=== PATIENT | female | born 1950 | race Caucasian/White ===

== ENCOUNTER → 2017-07-04 | Outpatient (CLI) | payer MEDICARE, OTHER ==
[~2017-07-04] MED LIST: AMANTADINE HCL100 M1 PO; AMARYL2 MG PO; ASPIRIN CHEWABL81 M1 PO; BENZTROPINE ME0.5 MG PO; BYETTA5MCG SC; CYMBALTA30 MG PO; DARVOCET N 1001 TAB PO; DAYPRO600 M1 PO; EXFORGE HCT 101 TA2 PO; EXFORGE HCT 5 M1 TA1 PO; HYDROCODONE BIT1 T11 PO; K-LOR20 MEQ PO; KLONOPIN1 M1 PO; KLONOPIN1 MG PO; LIPITOR80 MG PO; LITHIUM CARBON300 M1 PO; MACROBID100 M1 PO; METFORMIN500 MG PO; Orphenadrine C100 MG PO; SYNTHROID,LEV100 MCG PO; VISTARIL25 MG PO; VITAMIN B1250 MCG PO; VITAMIN D32000 UNIT PO; VITAMIN E400 UNI2 PO; ZOCOR40 MG PO
[2017-07-04 10:38] LABS: ALBUMIN 3.9 gm/dl (3.1-4.5); ALKALINE PHOSPHATASE 89 U/L (45-117); BILIRUBIN, DIRECT 0.1 mg/dL (0.0-0.2); BUN 18 mg/dl (7-24); CHLORIDE 106 mmol/L (98-107); CHOLESTEROL 97 mg/dL (<200); CREATININE 0.87 mg/dL (0.55-1.02); FREE T4 1.25 ng/dl (0.76-1.46); HDL CHOLESTEROL 36 mg/dl (40-60); LDL CHOLESTEROL 35 mg/dL (9-159); POTASSIUM 4.1 mmol/L (3.5-5.1); SGOT/AST 65 IU/L (3-35); SGPT/ALT 61 U/L (12-78); SODIUM 137 mmol/L (136-145); TOTAL PROTEIN 8.3 gm/dL (6.4-8.2); TRIGLYCERIDES 128 mg/dl (<150); VLDL CHOLESTEROL 26 mg/dL (6-40)
[2017-07-04 10:58] LABS: BILIRUBIN NEGATIVE (NEGATIVE); BLOOD NEGATIVE (NEGATIVE); CLARITY SL CLOUDY (CLEAR); COLOR YELLOW (YELLOW); GLUCOSE 3+ (NEGATIVE); KETONE NEGATIVE (NEGATIVE); LEUKO ESTERASE NEGATIVE (NEGATIVE); NITRITE NEGATIVE (NEGATIVE); PH 5.5 (5.0-9.0); UROBILINOGEN 0.2 E.U./dl (0.2-1.0)
[2017-07-04 11:10] LABS: BACTERIA TRACE; WBC 0-2 wbc/hpf (0-5)
[2017-07-04 11:24] LABS: VITAMIN D, 25-HYDROXY 32.2 ng/mL (30-100)
== END | disposition home or self-care (01) ==
LOC: LAB 09:19
PROVIDERS: Internal Medicine
DX: E78.5 Hyperlipidemia, unspecified (principal); E53.8 Deficiency of other specified B group vitamins; E11.65 Type 2 diabetes mellitus with hyperglycemia; E03.9 Hypothyroidism, unspecified; E55.9 Vitamin D deficiency, unspecified

== ENCOUNTER → 2017-10-26 | Outpatient (CLI) | payer MEDICARE, OTHER ==
[2017-10-26 10:01] LABS: BILIRUBIN NEGATIVE (NEGATIVE); BLOOD NEGATIVE (NEGATIVE); CLARITY SL CLOUDY (CLEAR); COLOR YELLOW (YELLOW); GLUCOSE 3+ (NEGATIVE); KETONE NEGATIVE (NEGATIVE); LEUKO ESTERASE NEGATIVE (NEGATIVE); NITRITE NEGATIVE (NEGATIVE); UROBILINOGEN 0.2 E.U./dl (0.2-1.0)
[2017-10-26 10:28] LABS: ALBUMIN 4.1 gm/dl (3.1-4.5); ALKALINE PHOSPHATASE 88 U/L (45-117); BILIRUBIN, DIRECT 0.1 mg/dL (0.0-0.2); BUN 18 mg/dl (7-24); CHLORIDE 105 mmol/L (98-107); CREATININE 0.84 mg/dL (0.55-1.02); POTASSIUM 4.1 mmol/L (3.5-5.1); SGOT/AST 42 IU/L (3-35); SGPT/ALT 47 U/L (12-78); SODIUM 137 mmol/L (136-145); TOTAL PROTEIN 7.9 gm/dL (6.4-8.2)
[2017-10-26 10:49] LABS: BACTERIA 1+
== END ==
LOC: LAB 09:07
PROVIDERS: Internal Medicine
DX: E11.65 Type 2 diabetes mellitus with hyperglycemia (principal); E53.8 Deficiency of other specified B group vitamins; E55.9 Vitamin D deficiency, unspecified; E78.5 Hyperlipidemia, unspecified

== ENCOUNTER → 2018-02-22 | Outpatient (CLI) | payer MEDICARE, OTHER ==
[2018-02-22 09:08] LABS: BILIRUBIN NEGATIVE (NEGATIVE); BLOOD 3+ (NEGATIVE); CLARITY SL CLOUDY (CLEAR); COLOR YELLOW (YELLOW); GLUCOSE 3+ (NEGATIVE); KETONE NEGATIVE (NEGATIVE); LEUKO ESTERASE NEGATIVE (NEGATIVE); NITRITE NEGATIVE (NEGATIVE); PH 5.5 (5.0-9.0); UROBILINOGEN 0.2 E.U./dl (0.2-1.0)
[2018-02-22 09:37] LABS: ALBUMIN 3.9 gm/dl (3.1-4.5); CHLORIDE 102 mmol/L (98-107); POTASSIUM 3.8 mmol/L (3.5-5.1); SODIUM 139 mmol/L (136-145)
[2018-02-22 09:46] LABS: ALKALINE PHOSPHATASE 88 U/L (45-117); BILIRUBIN, DIRECT 0.1 mg/dL (0.0-0.2); BUN 18 mg/dl (7-24); CHOLESTEROL 85 mg/dL (<200); CREATININE 0.86 mg/dL (0.55-1.02); FREE T4 1.08 ng/dl (0.76-1.46); HDL CHOLESTEROL 32 mg/dl (40-60); LDL CHOLESTEROL 22 mg/dL (9-159); SGOT/AST 34 IU/L (3-35); SGPT/ALT 43 U/L (12-78); TOTAL PROTEIN 7.7 gm/dL (6.4-8.2); TRIGLYCERIDES 155 mg/dl (<150); VLDL CHOLESTEROL 31 mg/dL (6-40)
[2018-02-22 10:00] LABS: BACTERIA 1+; RBC TNTC rbc/hpf (0-2)
[2018-02-22 11:45] LABS: VITAMIN D, 25-HYDROXY 50.9 ng/mL (30-100)
== END | disposition home or self-care (01) ==
LOC: LAB 08:15
PROVIDERS: Internal Medicine
DX: E53.8 Deficiency of other specified B group vitamins (principal); E55.9 Vitamin D deficiency, unspecified; E11.65 Type 2 diabetes mellitus with hyperglycemia; E03.9 Hypothyroidism, unspecified; E78.5 Hyperlipidemia, unspecified

== ENCOUNTER → 2018-07-19 | Outpatient (CLI) | payer MEDICARE, OTHER ==
[2018-07-19 09:06] LABS: ALBUMIN 3.8 gm/dl (3.1-4.5); ALKALINE PHOSPHATASE 80 U/L (45-117); BILIRUBIN, DIRECT < 0.1 mg/dL (0.0-0.2); BUN 16 mg/dl (7-24); CHLORIDE 107 mmol/L (98-107); CHOLESTEROL 91 mg/dL (<200); CREATININE 0.82 mg/dL (0.55-1.02); HDL CHOLESTEROL 30 mg/dl (40-60); LDL CHOLESTEROL 39 mg/dL (9-159); POTASSIUM 3.9 mmol/L (3.5-5.1); SGOT/AST 32 IU/L (3-35); SGPT/ALT 39 U/L (12-78); SODIUM 140 mmol/L (136-145); TOTAL PROTEIN 7.7 gm/dL (6.4-8.2); TRIGLYCERIDES 112 mg/dl (<150); VLDL CHOLESTEROL 22 mg/dL (6-40)
[2018-07-19 09:12] LABS: FREE T4 0.84 ng/dl (0.76-1.46); THYROID STIM HORMONE (HS) 0.715 uIU/ml (0.358-4.75)
[2018-07-19 12:16] LABS: VITAMIN D, 25-HYDROXY 46.3 ng/mL (30-100)
[2018-07-19 13:33] LABS: BILIRUBIN NEGATIVE (NEGATIVE); BLOOD TRACE-INTACT (NEGATIVE); CLARITY CLEAR (CLEAR); COLOR YELLOW (YELLOW); GLUCOSE 3+ (NEGATIVE); KETONE NEGATIVE (NEGATIVE); LEUKO ESTERASE NEGATIVE (NEGATIVE); NITRITE NEGATIVE (NEGATIVE); PH 5.5 (5.0-9.0); UROBILINOGEN 0.2 E.U./dl (0.2-1.0)
[2018-07-19 13:57] LABS: RBC 0-2 rbc/hpf (0-2)
== END | disposition home or self-care (01) ==
LOC: LAB 08:15
PROVIDERS: Internal Medicine
DX: E11.65 Type 2 diabetes mellitus with hyperglycemia (principal); E78.5 Hyperlipidemia, unspecified; E55.9 Vitamin D deficiency, unspecified; E53.8 Deficiency of other specified B group vitamins; E03.9 Hypothyroidism, unspecified

== ENCOUNTER → 2018-11-08 | Outpatient (CLI) | payer MEDICARE, OTHER ==
[~2018-11-08] MED LIST changes: +K-LOR 20MEQ20 ME1 PO; -K-LOR20 MEQ PO; +LEVAQUIN750 M1 PO; -METFORMIN500 MG PO; +METFORMIN750 MG PO; +PREDNISONE10 MG PO; +SEROQUEL25 MG PO; -SYNTHROID,LEV100 MCG PO; +SYNTHROID,LEV125 MCG PO; +TRESIBA FL200 UNIT/1 SQ; +TRULICITY1.5 MG/0.5 SC; +VRAYLAR3 MG PO
[2018-11-08 10:42] LABS: BILIRUBIN NEGATIVE (NEGATIVE); BLOOD NEGATIVE (NEGATIVE); CLARITY SL CLOUDY (CLEAR); COLOR YELLOW (YELLOW); GLUCOSE NEGATIVE (NEGATIVE); KETONE NEGATIVE (NEGATIVE); LEUKO ESTERASE NEGATIVE (NEGATIVE); NITRITE NEGATIVE (NEGATIVE); PH 5.5 (5.0-9.0); SPECIFIC GRAVITY 1.025 (1.005-1.030); UROBILINOGEN 0.2 E.U./dl (0.2-1.0)
[2018-11-08 10:43] LABS: ALBUMIN 3.7 gm/dl (3.1-4.5); ALKALINE PHOSPHATASE 83 U/L (45-117); BILIRUBIN, DIRECT 0.2 mg/dL (0.0-0.2); BUN 18 mg/dl (7-24); CHLORIDE 108 mmol/L (98-107); CHOLESTEROL 88 mg/dL (<200); CREATININE 0.86 mg/dL (0.55-1.02); FREE T4 0.82 ng/dl (0.76-1.46); HDL CHOLESTEROL 30 mg/dl (40-60); LDL CHOLESTEROL 38 mg/dL (9-159); POTASSIUM 3.9 mmol/L (3.5-5.1); SGOT/AST 68 IU/L (3-35); SGPT/ALT 71 U/L (12-78); SODIUM 142 mmol/L (136-145); TOTAL PROTEIN 7.9 gm/dL (6.4-8.2); TRIGLYCERIDES 99 mg/dl (<150); VLDL CHOLESTEROL 20 mg/dL (6-40)
[2018-11-08 11:04] LABS: VITAMIN D, 25-HYDROXY 43.7 ng/mL (30-100)
== END | disposition home or self-care (01) ==
LOC: LAB 09:31
PROVIDERS: Internal Medicine
DX: E11.65 Type 2 diabetes mellitus with hyperglycemia (principal); E55.9 Vitamin D deficiency, unspecified; E03.9 Hypothyroidism, unspecified; E53.8 Deficiency of other specified B group vitamins; E78.5 Hyperlipidemia, unspecified

== ENCOUNTER 2019-03-01 18:32 | Inpatient (IN) | payer MEDICARE, OTHER ==
[~2019-03-01] VITALS: Ht 172.7 cm; Wt 111.8 kg
--- NOTE | ~2019-03-01 | PR ---
[place], [place] PROGRESS NOTE NAME: ZORAN HAN [facility] #: [id number] UNIT #: [id number] ROOM: 502 DOCTOR: ANTONIO COVARRUBIAS MD BIRTHDATE: [birth year] DOS: 03/03/2019 SUBJECTIVE: The patient was noted comfortable from yesterday. Shortness of breath has been noted decreased. There were no symptoms of chest pain. Denies symptoms of hemoptysis. Used the BiPAP last night. She has noted fever or elevation, temperature of 101 degree Fahrenheit last night as well. Denies any symptoms of nausea, vomiting, diarrhea, or abdominal pain. Denies pain of the lower extremity. Remaining systems were reviewed, they were noted all negative. PHYSICAL EXAMINATION: GENERAL: The patient was resting comfortably. The patient sitting on the bed this morning. VITAL SIGNS: Temperature 101 degrees Fahrenheit noted as max temperature at midnight and noted afebrile this morning, respiratory rate between 20-22, heart rate 82, blood pressure 90/76, 120/52. Pulse oxygen saturation on 4 liters nasal cannula recorded 94% saturation. HEENT: Chronic obesity. Head was atraumatic. Eyes nonicterus. NECK: Supple. CARDIOVASCULAR: S1, S2 audible. LUNGS: The patient noted with reduction in the wheezing from previous examination. There were no crackles. ABDOMEN: Soft, nontender. Bowel sounds present and obese. EXTREMITIES: Without acute edema. MUSCULOSKELETAL: Noted without any acute deformities. CENTRAL NERVOUS SYSTEM: Cranial nerves were Intact. LABORATORY DATA: Today, WBC count 14,000, hemoglobin 10.6, platelet count 356,000. BMP this morning, BUN 26, creatinine was normal, glucose 353 elevated. PT/PTT was noted as normal. Platelet function was noted abnormal, secondary to use of aspirin. IMPRESSION: 1. Large mass-like consolidation, infiltration in the right upper lobe predominantly. Rule out any endobronchial lesions. 2. Chronic obesity. 3. Acute onset of bronchial asthma with acute exacerbation. 4. Chronic obesity. 5. Leukocytosis as well. PLAN OF TREATMENT: No changes in plan of management. Continue the steroids previously ordered. Bronchodilator use of the BiPAP and oxygen supplementation. Bronchoscopy planned to be done in the morning, n.p.o. past midnight status was achieved. Usual care. [place], [place] PROGRESS NOTE NAME: ZORAN HAN UNIT #: [id number] ROOM: [facility] DOCTOR: ANTONIO COVARRUBIAS MD BIRTHDATE: [birth year] ANTONIO TERRAZAS MD CM:PNTRANS [id number] ANTONIO RAMOS MD 03/03/19 1454 interface
--- NOTE | ~2019-03-01 | EKG ---
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
--- NOTE | ~2019-03-01 | PR ---
[place], [place] PROGRESS NOTE NAME: ZORAN HAN UNIT #: [id number] ROOM: 502 DOCTOR: MK RAMOS MD,ANTONIO BIRTHDATE: [birth year] DOS: 03/06/2019 PULMONARY PROGRESS NOTE SUBJECTIVE: The patient independently seen and examined in psma-md-cuux encounter, history was confirmed. Physical examination performed. The labs were reviewed. Assessment and management for today's note was personally completed. Note done by the medical support assistant was approved as well. She has been noted comfortable at this time, resting on the bed. The patient using oxygen supplementation via nasal cannula. There were no symptoms of coughing, shortness of breath has been improving. The patient had been ambulating, going to the bathroom. Denies symptoms of fever or chills. PHYSICAL EXAMINATION: GENERAL: The patient currently resting comfortably, sitting on the bed. VITAL SIGNS: Normal temperature, respiratory rate of 18, heart rate 80, blood pressure 155/83. Pulse oxygen saturation recorded on 4 liters nasal cannula 96% saturation at rest. HEENT: Examination shows head was atraumatic. Eyes nonicterus. NECK: Supple. CARDIOVASCULAR: S1, S2 audible. LUNGS: Noted for the patient with mild decreased breaths are noted in the right lung. The left lung was clear. ABDOMEN: Soft, nontender, bowel sounds present. EXTREMITIES: No acute change. LABORATORY DATA: The bronchial washing culture was noted as no abnormal bacterial growth, except yeast was isolated. The chest x-ray was noted with resolving consolidation, infiltration in the right upper lobe. Small associated pleural fluid cannot be excluded. IMPRESSION: 1. Resolving acute exacerbation of bronchial asthma, improving acute pneumonia most likely rule out any underlying malignancy. Followup CT scan of the chest in the next 4-5 weeks. 2. Chronic obesity. 3. Acute hypoxic respiratory failure. PLAN OF MANAGEMENT: Assess the patient need of home oxygen, tapering dose depending, use of bronchodilators. Oral antibiotic, Levaquin will be given because of large consolidation as 500 mg daily for the next 10 days. Other therapy, plan and management, additional treatment changes will be ordered based on the progression of the illness. [place], [place] PROGRESS NOTE NAME: ZORAN HAN UNIT #: [id number] ROOM: [facility] DOCTOR: ANTONIO COVARRUBIAS MD BIRTHDATE: [birth year] ANTONIO TERRAZAS MD CM:PNCAREN [id number] ANTONIO RAMOS MD 03/06/19 1526 interface
--- NOTE | ~2019-03-01 | CON ---
[place], [place] REPORT OF CONSULTATION NAME: ZORAN HAN [facility] #: [id number] UNIT #: [id number] ROOM: 502 DOCTOR: ANTONIO COVARRUBIAS MD BIRTHDATE: [birth year] DOS: 03/02/2019 PULMONARY CONSULTATION, EVALUATION, AND MANAGEMENT REASON FOR CONSULTATION: For assessment of symptoms of shortness of breath with cough, respiratory failure and pneumonia versus mass in the right lung. HISTORY OF PRESENT ILLNESS: This is a 68-year-old white female patient without any known diagnosis of pulmonary disease, presented to the hospital reporting having general weakness or fatigue with progressive increased shortness of breath associated with nonproductive cough and later on fever and weakness. The patient had been assessed in the Emergency Room with further assessment. The chest x-ray was done and noted large mass-like lesion, consolidation of the right upper lobe. The CT scan of chest was also completed at that time as well. She has a CT scan of the abdomen and pelvis done for assessment of current ongoing diarrhea. She has been currently admitted to the hospital for further medical management. She has been reported partial reduction in respiratory symptoms. Cough has been noted nonproductive. Shortness breath was noted with mild exertion sometime at rest. There were no symptoms of hemoptysis stated by the patient. There were no symptoms of wheezing stated by the patient as well. REVIEW OF SYSTEMS: CONSTITUTIONAL: Fatigue and tiredness noted recently with onset of abnormal weight loss. Reported symptoms of fever, but there were no chills, or night sweats. EYES: Denies burning, redness, or tenderness. EARS, NOSE, THROAT SYMPTOMS: Denies sore throat, hoarseness, otalgia, postnasal drainage or epistaxis. CARDIOVASCULAR: Denies anginal pain, edema, and pain of the lower extremities. GASTROINTESTINAL: Denies dysphagia, nausea, vomiting, diarrhea, abdominal pain, hematemesis, melena, or hematochezia. SKIN: Denies abnormal lesions or rashes. CENTRAL NERVOUS SYSTEM: Denies dizziness, headache, diplopia or syncopal episode. Remaining systems were reviewed and they were noted all negative. PAST MEDICAL HISTORY: Known with: 1. History of type 2 diabetes mellitus. 2. Bipolar disorder. 3. Essential hypertension. 4. Hyperlipidemia. 5. Hypothyroidism. 6. Chronic moderate obesity. 7. Past history of transient ischemic attack. PAST SURGICAL HISTORY: Reported: 1. . 2. Complete hysterectomy. SOCIAL HISTORY: The patient is and lives at home, has 2 children, noted [place], [place] REPORT OF CONSULTATION NAME: ZORAN HAN UNIT #: [id number] ROOM: [facility] DOCTOR: ANTONIO COVARRUBIAS MD BIRTHDATE: [birth year] nonsmoker lifetime. Denies history of alcohol use or illicit drug use stated. FAMILY HISTORY: The patient's father at the age 62 of heart problem. Mother with complication related to lung cancer. MEDICATIONS: From home were listed as Exforge, aspirin, Lipitor, Cogentin, vitamin D, Klonopin, Trulicity, Cymbalta, Synthroid, metformin, potassium chloride, and vitamin E. Active medications administered for on this hospitalization were use of Norvasc, Cogentin, Lipitor, aspirin, Cymbalta, levothyroxine, Lovenox for DVT prophylaxis, DuoNeb, IV Rocephin, and some other p.r.n. medications. ALLERGIES: DRUG ALLERGIES NOTED ALLERGIES TO WELLBUTRIN, GEODON, IODINE, SULFA DRUGS AND DANAZOL. PHYSICAL EXAMINATION: GENERAL: The patient is a 68-year-old female patient currently comfortable, sitting on the bed with the patient's and daughter also present in the room with the patient. Height of 5 feet 8 inches, weight of 246 pounds, BMI 37.4. VITAL SIGNS: Temperature max of 100.7 degree Fahrenheit, on admission 99.7 degree Fahrenheit to normal temperature at noon today. Respiratory rate was noted 30 on admission, currently 22. Heart rate 102, currently 91; blood pressure 159/64 on admission, currently 155/73. Pulse oxygen saturation recorded as 91% saturation. Previously, she used a BiPAP for respiratory distress management noted with saturation of 97%, 40% to 35% oxygen. HEENT: Head was atraumatic. Eyes nonicterus. Decreased posterior pharyngeal space, high tongue base, crowding of soft tissue structures. Oral mucosa is moist. There were no lesions. CARDIOVASCULAR: S1, S2 audible. LUNGS: Noted with mild reduced breath sounds with expiratory wheezing noted in the lungs bilaterally. ABDOMEN: Soft, obese, and nontender. Bowel sounds are present. EXTREMITIES: Without acute edema. MUSCULOSKELETAL: Without acute deformities. CENTRAL NERVOUS SYSTEM: Cranial nerves 2-12 intact. LABORATORY DATA: PT/PTT yesterday were noted as normal study. CBC done on 03/01/2019, WBC count 14.4, hemoglobin 11.6, platelet count normal, 17 % lymphocytes. CMP that was done 03/01/2019, BUN 12, creatinine 1.04, glucose 189. Sodium 133, potassium 3.4. Phosphorus noted low as 2.4. Lipase level was noted as normal. Troponin 3 sets yesterday negative. Lactic acid 2.4 yesterday, later 1.3. CBC this morning labs, WBC count 13.9, hemoglobin 10.5, hematocrit 326 with 20% lymphocytes. Chest x-ray that was done, one-view, yesterday were reviewed shows large infiltrate limited by the right minor fissure in the right upper lobe. CT scan of the chest, abdomen and pelvis was completed yesterday. CT scan of reviewed shows large area of infiltration with consolidation mass appearance was noted without any significant volume loss in the right upper lobe. Associated lymph node enlargement noted in the right [place], [place] REPORT OF CONSULTATION NAME: ZORAN HAN UNIT #: [id number] ROOM: 502 DOCTOR: ANTONIO COVARRUBIAS MD BIRTHDATE: [birth year] hilar area as well. There were no pleural effusions. IMPRESSION: 1. The patient will be currently admitted to the hospital with symptoms suggestive of acute infection noted with abnormal chest x-ray and CT scan is currently noted the differential of acute pneumonia. Malignancy can be completely excluded as the lymph node enlargement was noted. Differential current pneumonia would be considered with the GI symptoms hypophosphatemia with possible consideration of atypical pneumonia including Legionella pneumonia. 2. The patient with respiratory distress, result of acute pneumonia, but not noted with hypoxia. 3. Chronic moderate obesity. 4. Type 2 diabetes mellitus and other medical illnesses. 5. Family history of lung cancer. The patient was also known in the mother who already . 6. The patient had acute onset of bronchial asthma exacerbation with current pulmonary infection very likely. 7. The patient with current body habitus suggestive of obstructive sleep apnea disorder. 8. Hypophosphatemia related to the pulmonary infection as well as related to diarrhea as well. 9. Diarrhea, ruled out infection or association of current pulmonary infection. PLAN OF THERAPY: The patient was getting IV Rocephin and Zithromax. Zithromax was discontinued. The patient started instead on IV Levaquin with atypical better coverage. The bronchoscopy planned to be done on Monday only to assess the endobronchial tree and endobronchial lesion noted. Certainly, the biopsy will be done. Otherwise, bronchial washing will be taken. Continuation of the bronchodilators. The patient was also noted acute onset of exacerbation of bronchial asthma, wheezing, started on IV Solu-Medrol as well. Use the BiPAP for respiratory distress certainly could be continued. Titrate oxygen supplementation in case of hypoxia. Other therapy, plan of management. Additional treatment changes will be made based on the progression of the illness. Thank you for allowing me to participate in the care of this patient. [place], [place] REPORT OF CONSULTATION NAME: ZORAN HAN UNIT #: [id number] ROOM: [facility] DOCTOR: ANTONIO COVARRUBIAS MD BIRTHDATE: [birth year] ANTONIO TERRAZAS MD CM:CONSTR:REPORT OF CONSULTATION 1620 03/13/19 1050 interface
--- NOTE | ~2019-03-01 | PR ---
[place], [place] PROGRESS NOTE NAME: ZORAN HAN UNIT #: [id number] ROOM: 502 DOCTOR: MK RAMOS MD,ANTONIO BIRTHDATE: [birth year] DOS: 03/04/2019 PULMONARY PROGRESS NOTE SUBJECTIVE: The patient was seen and examined on 03/04/2019. She was noted n.p.o. past midnight for bronchoscopy that was planned to be done today. She had not been noted with symptoms of fever or chills. Denies symptoms of acute hemoptysis. General weakness and fatigue were noted. The wheezing was noted with gradual reduction. Denies symptoms of nausea, vomiting, or diarrhea. The patient has been appearing to be comfortable this morning of assessment. The patient was lying in the bed. The patient reported no headache. The oxygen supplement, continue with the nasal cannula. Remaining systems were reviewed. They were noted all negative. PHYSICAL EXAMINATION: VITAL SIGNS: Normal temperature this morning, respiratory rate of 18, heart rate of 80-55, blood pressure 126/65-140/62. Pulse ox saturation on 4 liters nasal cannula 92% saturation. HEENT: Examination shows head was atraumatic, chronic obesity. NECK: Supple. CARDIOVASCULAR: S1, S2 audible. LUNGS: The patient was noted with the decreased breaths in the lungs bilaterally. ABDOMEN: Soft, nontender. Bowel sounds present. EXTREMITIES: Without acute edema. MUSCULOSKELETAL: Without any acute deformities. CENTRAL NERVOUS SYSTEM: Cranial nerves 2-12 intact. LABORATORY DATA: CMP this morning, glucose 375, BUN 27, creatinine 1.04. AST was 38. The CBC, WBC count 14.4, hemoglobin 11.2, hematocrit 33.5, platelet count 517,000. The chest x-ray yesterday that was done was reviewed, shows persistent right upper lung infiltration or consolidation or mass lesion. IMPRESSION: Persistent acute pneumonia, large, rule out any malignant process, n.p.o. for bronchoscopy, and acute exacerbation of bronchial asthma as well. PLAN OF MANAGEMENT: Continue the steroids, bronchodilators, medication for hyperglycemia, proceed with bronchoscopy. I suggest to make any changes in the medical management after bronchoscopy as necessary. Supportive care. [place], [place] PROGRESS NOTE NAME: ZORAN HAN UNIT #: [id number] ROOM: [facility] DOCTOR: ANTONIO COVARRUBIAS MD BIRTHDATE: [birth year] ANTONIO TERRAZAS MD CM:JOAQUIN [id number] ANTONIO RAMOS MD 03/13/19 1051 interface
--- NOTE | ~2019-03-01 | PROC NOTE ---
[place], [place] PROCEDURE NOTE [id number] #: [id number] ROOM: 502 DOCTOR: MK RAMOS MD,ANTONIO BIRTHDATE: [birth year] DOS: 03/04/2019 FIBEROPTIC BRONCHOSCOPY AND BAL SPECIMEN PREOPERATIVE DIAGNOSIS: A large mass-like lesion with consolidation of the right upper lobe, rule out any endobronchial obstruction. POSTOPERATIVE DIAGNOSIS: Findings of highly suggestive of acute inflammatory process with pneumonia, but there was no endobronchial obstruction. COMPLICATIONS: None. PROCEDURE DESCRIPTION: Informed consent obtained from the patient. The patient was brought to the OR and placed in supine position. Conscious sedation was administered by the Anesthesia Department. After achieving proper sedation, airway was introduced into the mouth. Bronchoscope was advanced to the airway into the laryngeal area. Epiglottis and vocal cord were seen. Vocal cord was noted moving symmetrically with movements. The bronchoscope was advanced through the vocal cord into tracheal lumen, it was noted with small secretion in the distal part of the trachea, which was suctioned out. There was secretion tracking to the right upper lobe subsegment as well. All secretions were suctioned out. Significant inflammatory changes noted with mucosal edema and friability of right upper lobe bronchial opening. There was no endobronchial obstructive lesion noted. Bronchial washing was taken from the right upper, middle, right lower, left upper, lingula, and lower lobe bronchi. In addition to that, BAL specimen was also obtained from the right upper lung subsegment. Procedure was well tolerated by the patient without any difficulty. Postoperative findings were discussed with the patient's family members in detail in the recovery room. No any major change in treatment at this time will be necessary. Continue current antibiotic coverage and management plan as in progress. ANTONIO TERRAZAS MD CM:PROCNOTE:PROCEDURE NOTE [id number] ANTONIO RAMOS MD
--- NOTE | ~2019-03-01 | CON ---
[place], [place] REPORT OF CONSULTATION [id number] #: [id number] ROOM: 502 DOCTOR: SANDRINE BOURGEOIS ED.D (JACKIE) BIRTHDATE: [birth year] DOS: HISTORY OF PRESENT ILLNESS: The patient is a 68-year-old female referred by the hospitalist for psychological evaluation of her depression. At the present time, this patient is on the 5th floor at [facility]. She is and her was with her through the initial stage of the interview. She also has 2 children. 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 Her family is Dr. Neal in [place], [place]. PAST MEDICAL HISTORY: Pertinent for bipolar 1 disorder, hypertension, hypothyroidism, morbid obesity, TIA and diabetes mellitus type 2 and pneumonia. MEDICATIONS: At home include amlodipine, aspirin, benztropine, vitamin D3, Vraylar, Cymbalta and Klonopin and vitamin B12. SOCIAL HISTORY: She denies any substance abuse issues. This patient was awake, alert and oriented in all three spheres. She adamantly denied any suicidal ideation or plan. She has been hospitalized several times in the past at [place], [place] and also [place], [place]. I spoke to her about the need for possible inpatient hospitalization on the Psychiatric Unit here at [facility]. She states that she is doing very well now that her pneumonia has stabilized. She does well on her medications and will continue to follow with Andria Nicole, nurse practitioner. DIAGNOSES: Bipolar 1 disorder - mixed. RECOMMENDATIONS: In my opinion, this patient should be discharged home when she is medically stable to follow up with her outpatient mental health treatment and continue her medications as prescribed. Thank you very much for this consult. SANDRINE BOURGEOIS ED.D CM:CONSTR:REPORT OF CONSULTATION 1126 03/05/19 1557 interface
--- NOTE | ~2019-03-01 | EKG ---
[place], [place] ELECTROCARDIOGRAM REPORT NAME: ZOARN HAN UNIT #: [id number] ROOM: 502 DOCTOR: CAROLINA DRAFT REPORT BIRTHDATE: [birth year] [facility] Test Date: 2019-03-02 Test Time: 00:29:02 Pat Name: ZORAN HAN Department: Room: [facility] Gender: F Rn Operating Room: [place]ogany Shea : 1950 Requested By: ERNST LOPEZ DNP Order Number: [id number] Reading MD: John Paul Gill Measurements Intervals [place] Rate: 75 P: 49 MD: 211 QRS: 25 QRSD: 103 T: 39 QT: 427 QTc: 477 Interpretive Statements Sinus rhythm Low voltage, precordial leads No previous ECG available for comparison Electronically Signed On 03-03-2019 12:50:44 PDT by John Paul Gill CM:EKGRPT:ELECTROCARDIOGRAM REPORT 0029 1250 ERNST LOPEZ DNP EPIPHANY DRAFT REPORT ERNST LOPEZ DNP
--- NOTE | ~2019-03-01 | EKG ---
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
--- NOTE | ~2019-03-01 | PR ---
[place], [place] PROGRESS NOTE NAME: ZORAN HAN UNIT #: [id number] ROOM: 502 DOCTOR: ANTONIO COVARRUBIAS MD BIRTHDATE: [birth year] DOS: 03/05/2019 PULMONARY PROGRESS NOTE The patient is independently seen and examined in [id number] encounter, history was confirmed, physical examination performed, labs were reviewed. Note done by the medical equipment repairer was approved as well. SUBJECTIVE: The patient has been comfortably resting in the bed this morning. She had bronchoscopy done yesterday. Coughing has been noted decreased. Wheezing is also improving significantly. There are no symptoms of chest pain, fever, or chills. OBJECTIVE: VITAL SIGNS: Normal temperature, respiratory rate 20-24, heart rate 76, blood pressure 134/51. Pulse oxygen saturation on three liters nasal cannula is 95% saturation recorded. HEENT: Chronic obesity. Head is atraumatic. Eyes nonicteric. CARDIOVASCULAR: S1 and S2 audible. LUNGS: Free of any wheezing bilaterally. ABDOMEN: Soft, nontender. Bowel sounds present. EXTREMITIES: No acute change. IMPRESSION: Stable respiratory status noted at the present time, responding to current treatment for acute large area of consolidation and pneumonia. Preliminary culture noted without bacterial growth, except isolation of the yeast. The BAL specimen noted with 84% neutrophils, suggestive of acute inflammatory process. PLAN OF THERAPY: Decrease Solu-Medrol to 40 mg daily. Continue antibiotics. Results of the legionella antigen, strep antigen, urine were still pending. Potential discharge in the morning, oral antibiotic conversion, with outpatient close followup will be planned. [place], [place] PROGRESS NOTE NAME: ZORAN HAN UNIT #: [id number] ROOM: 502 DOCTOR: ANTONIO COVARRUBIAS MD BIRTHDATE: [birth year] ANTONIO TERRAZAS MD CM:PNTRANS [id number] ANTONIO RAMOS MD 03/05/19 1436 interface
--- NOTE | ~2019-03-01 | PR ---
[place], [place] PROGRESS NOTE NAME: [facility]AN [id number] UNIT #: [id number] ROOM: 502 DOCTOR: BIANCA HEARD DO BIRTHDATE: [birth year] DOS: 03/05/2019 PULMONARY PROGRESS NOTE. SUBJECTIVE: The patient states that she feels much better today. The patient is status post bronchoscopy, post-procedure day #1. The patient states that she feels like she is breathing much better since she had the procedure done. The patient denies any hemoptysis since procedure. Remaining review of systems was noted to be negative. PHYSICAL EXAMINATION: VITAL SIGNS: Temperature is 97.8, pulse rate 76, respiratory rate 24, blood pressure is 134/51. The patient is 95% on 3 liters by nasal cannula. HEENT: Normocephalic, atraumatic. Eyes nonicteric. NECK: Supple, nontender, trachea midline. CARDIOVASCULAR: S1, S2 audible. LUNGS: Decreased breath sounds bilaterally. ABDOMEN: Soft, nontender. Bowel sounds are present. EXTREMITIES: Without any acute edema. MUSCULOSKELETAL: Without any acute deformities. CENTRAL NERVOUS SYSTEM: Cranial nerves 2-12 grossly intact. No focal neurologic deficits. LABORATORY DATA: White blood cell count 16.3, hemoglobin 11.3, hematocrit 34.7, platelet count is 438. Chemistries: Sodium 137, potassium 4.8, chloride 108, carbon dioxide 19, BUN 20, creatinine 0.97, calcium 9.2. T-bili is 0.4, AST 53, ALT 47, alkaline phosphatase 76, total protein 7.6, albumin is 3.4. MICROBIOLOGY: Bronchial wall shows moderate yeast at this time. IMPRESSION: 1. Persistent acute pneumonia, rule out malignant process. 2. Acute exacerbation of bronchial asthma as well. 3. Morbid obesity. PLAN: At this time, continue steroids, bronchodilators and antibiotics. Continue to follow microbiology for any cultures that may become positive. Continue supportive care. The patient will follow up with Dr. Terrazas upon discharge for further evaluation of the right upper lobe consolidation. Zenon Heard DO [place], [place] PROGRESS NOTE NAME: ZORAN HAN UNIT #: [id number] ROOM: [facility] DOCTOR: BIANCA HEARD DO BIRTHDATE: [birth year] ANTONIO TERRAZAS MD CM:JOAQUIN [phone] BIANCA HEARD DO 03/05/191957 interface
--- NOTE | ~2019-03-01 | EKG ---
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
[2019-03-01 18:32] VITALS: BP 159/64
[~2019-03-01 18:32] MED LIST changes: -LEVAQUIN750 M1 PO; -PREDNISONE10 MG PO; -SEROQUEL25 MG PO; -TRESIBA FL200 UNIT/1 SQ; -TRULICITY1.5 MG/0.5 SC; -VRAYLAR3 MG PO
[2019-03-01 19:11] LABS: HEMATOCRIT 34.2 % (37.0-47.0); HEMOGLOBIN 11.6 g/dl (12.0-16.0); MEAN CELL VOLUME 89.5 fl (81.0-99.0); MEAN CORPUSCULAR HGB 30.4 pg (27.0-31.0); MEAN CORPUSCULAR HGB CONC 33.9 g/dl (33.0-37.0); MEAN PLATELET VOLUME 9.4 fl (9.6-12.3); PLATELET COUNT AUTOMATED 370 10*3/uL (130-400); RED BLOOD COUNT 3.82 10*6/uL (4.10-5.10); WHITE BLOOD COUNT 14.4 10*3/uL (4.8-10.8)
[2019-03-01 19:23] LABS: ACT PARTIAL THROMBO TIME 27.3 SECONDS (20.0-32.1)
[2019-03-01 19:30] VITALS: BP 148/66
[2019-03-01 19:33] LABS: ATYPICAL LYMPHS 1 % (0-0); BASOPHILS 1 % (0-1); BURR CELLS FEW; PLATELET SUFFICIENCY NORMAL (NORMAL); POLYCHROMASIA SLIGHT; TOTAL CELLS COUNTED 100 #CELLS
[2019-03-01 19:35] LABS: ALBUMIN 2.6 gm/dl (3.1-4.5); ALKALINE PHOSPHATASE 72 U/L (45-117); BUN 12 mg/dl (7-24); CHLORIDE 101 mmol/L (98-107); CREATININE 1.04 mg/dL (0.55-1.02); POTASSIUM 3.4 mmol/L (3.5-5.1); SGOT/AST 42 IU/L (3-35); SGPT/ALT 32 U/L (12-78); SODIUM 133 mmol/L (136-145); TOTAL PROTEIN 7.7 gm/dL (6.4-8.2); TROPONIN I < 0.015 ng/ml (<0.045)
--- NOTE | 2019-03-01 19:48 | NUR ---
LAB CALLED WITH CRITICAL LACTIC LEVEL OF 2.4. NOTIFIED.
[2019-03-01 19:50] LABS: PHOSPHOROUS 2.4 mg/dL (2.5-4.9)
[2019-03-01 20:20] VITALS: BP 151/68
[2019-03-01 21:00] VITALS: BP 154/66
[2019-03-01 21:22] VITALS: BP 126/66
--- NOTE | 2019-03-01 21:22 | NUR ---
A 68, admitted to 5E, under the services of COSTA Keita DO with a diagnosis of DYSPNEA, SEVERE SEPSIS, PNEUMONIA. Chief complaint is SHORTNESS OF BREATH. Patient arrived via ambulatory from ER. Monitor applied. Initial assessment completed. Vital signs taken and recorded. COSTA KEITA DO notified of admission to the unit. Orders received. See assessment for past medical history, medications and allergies. Patient and/or family oriented to unit. visitation policy reviewed. Clothing/patient valuable form completed. LINETTE JAVED
--- NOTE | 2019-03-01 21:45 | NUR ---
DR. RENTERIA NOTIFIED OF CRITICAL LACTIC ACID OF 2.6. ALSO NOTIFIED THAT PATIENT'S HOME MED REQ IS UP TO DATE.
[2019-03-01] MEDS ORDERED: TRULICITY1.5 MG/0.5 SC (21:59)
--- NOTE | 2019-03-01 23:00 | NUR ---
Pt placed on BiPap 12/6 and 40%. Pt is tolerating well. Alarms on and audible. Pulse ox hooked up to hallway monitor. SpO2 97%.
[2019-03-02] VITALS: BP 115/67; BP 124/63; BP 132/57
--- NOTE | 2019-03-02 01:04 | NUR ---
PATIENT MEDICATED WITH TYLENOL FOR TEMP OF 100.7. WILL CONTINUE TO MONITOR. CALL LIGHT IN REACH.
[2019-03-02 06:22] LABS: HEMATOCRIT 32.2 % (37.0-47.0); HEMOGLOBIN 10.5 g/dl (12.0-16.0); MEAN CELL VOLUME 90.4 fl (81.0-99.0); MEAN CORPUSCULAR HGB 29.5 pg (27.0-31.0); MEAN CORPUSCULAR HGB CONC 32.6 g/dl (33.0-37.0); MEAN PLATELET VOLUME 10.1 fl (9.6-12.3); PLATELET COUNT AUTOMATED 326 10*3/uL (130-400); RED BLOOD COUNT 3.56 10*6/uL (4.10-5.10); WHITE BLOOD COUNT 13.9 10*3/uL (4.8-10.8)
[2019-03-02 06:25] LABS: BUN 13 mg/dl (7-24); CHLORIDE 106 mmol/L (98-107); CREATININE 0.88 mg/dL (0.55-1.02); PHOSPHOROUS 2.5 mg/dL (2.5-4.9); POTASSIUM 3.3 mmol/L (3.5-5.1); SODIUM 137 mmol/L (136-145)
--- NOTE | 2019-03-02 07:07 | NUR ---
NOTIFIED OF CONSULT FOR RIGHT UPPER LOBE PNEUMONIA.
[2019-03-02 07:59] LABS: ATYPICAL LYMPHS 2 % (0-0); BURR CELLS MODERATE; PLASMA CELL 2 % (0-0); PLATELET SUFFICIENCY NORMAL (NORMAL); POLYCHROMASIA SLIGHT; TOTAL CELLS COUNTED 100 #CELLS
--- NOTE | 2019-03-02 10:15 | NUR ---
ORDERS REC'D TO D/C SCHOOL FUNDRAISING DIRECTOR. MONITOR REMOVED AND CONTACT WAS MADE TO MONITOR ROOM.
[2019-03-02 12:00] VITALS: BP 155/73
[2019-03-02 13:17] LABS: ACT PARTIAL THROMBO TIME 28.2 SECONDS (20.0-32.1)
[2019-03-02 16:00] VITALS: BP 114/64
--- NOTE | 2019-03-02 18:25 | NUR ---
TEMP 97.9 FOLLOWING TYLENOL. PT NO LONGER DIAPHORETIC. NO COMPLAINTS VOICED. CALL LIGHT IN REACH.
[2019-03-02 20:00] VITALS: BP 97/51
--- NOTE | 2019-03-02 21:05 | NUR ---
STERILE URINE COLLECTED, SENT TO LAB.
[2019-03-03] VITALS: BP 119/76; BP 120/52; BP 150/99
--- NOTE | 2019-03-03 02:30 | NUR ---
PATIENT VOICES CONCERN THAT HER DOG WAS RUNNING AROUND IN THE HAILE AND THAT SHE WAS CONCERNED SOMEONE WAS TRYING TO HURT HIM. PATIENT SAID "I FEEL LIKE EVERYONE HERE IS TRYING TO HURT ME" PATIENT CALMED DOWN AND BIPAP WAS PUT ON WHILE PATIENT SLEPT. NO FURTHER SIGNS OR SYMPTOMS OF DISTRESS.
--- NOTE | 2019-03-03 04:10 | NUR ---
PATIENT AWOKE AND PULLED OFF BIPAP. PATIENT CALLED AND SAID" EVERYONE HERE IS PART OF A BIG PRANK ON ME" WHEN CONFRONTED PATIENT THEN SAID THAT SHE WAS EXPECTING SOMEONE TO "JUMP IN FROM THE WINDOW AND YELL SURPRISE IT'S A PRANK." PATIENT VITAL SIGNS STABLE. 98.2, 88, 22, 134/62 94% 4L VIA NC. NO SIGNS OR SYMPTOMS OF DISTRESS. ARRIVED ON FLOOR AND TALKED TO THIS RN ABOUT THE SITUATION. STATED THAT RECENTLY THE PATIENT HAS WOKE UP IN THE MIDDLE OF THE NIGHT AND VOICED CONCERNS TO HIM ABOUT FEELING "FUZZY" AND THAT EVERYONE AROUND HER IS IN ON A BIG PRANK TO HER.
--- NOTE | 2019-03-03 07:51 | NUR ---
DR DOMINGUEZ NOTIFIED OF PATIENT'S FLIGHT OF IDEAS, AND PARANOID MOMENTS FROM PREVIOUS SHIFT. NO NEW ORDERS RECEIVED.
[2019-03-03 08:12] LABS: HEMATOCRIT 32.2 % (37.0-47.0); HEMOGLOBIN 10.6 g/dl (12.0-16.0); MEAN CORPUSCULAR HGB 29.9 pg (27.0-31.0); MEAN CORPUSCULAR HGB CONC 32.9 g/dl (33.0-37.0); MEAN PLATELET VOLUME 10.3 fl (9.6-12.3); PLATELET COUNT AUTOMATED 356 10*3/uL (130-400); RED BLOOD COUNT 3.54 10*6/uL (4.10-5.10); RED CELL DISTRI WIDTH 12.8 % (0-14.5)
[2019-03-03 08:23] LABS: CHLORIDE 108 mmol/L (98-107); CREATININE 1.07 mg/dL (0.55-1.02); POTASSIUM 3.9 mmol/L (3.5-5.1); SODIUM 140 mmol/L (136-145)
[2019-03-03 08:24] LABS: BUN 23 mg/dl (7-24)
[2019-03-03 08:34] LABS: ATYPICAL LYMPHS 1 % (0-0); BURR CELLS FEW; PLATELET SUFFICIENCY NORMAL (NORMAL); TOTAL CELLS COUNTED 100 #CELLS
[2019-03-03 08:35] LABS: POLYCHROMASIA SLIGHT
--- NOTE | 2019-03-03 09:52 | NUR ---
[facility] MADE AWARE OF CONSULT. SAID THEY WOULD LET "HIM" KNOW.
[2019-03-03 12:00] VITALS: BP 124/60
[2019-03-03 16:00] VITALS: BP 109/55
[2019-03-03] MEDS ORDERED: TRESIBA FL200 UNIT/1 SQ (18:20)
[2019-03-03] MEDS ORDERED: VRAYLAR3 MG PO (18:29)
[2019-03-03] MEDS ORDERED: SEROQUEL25 MG PO (18:31)
--- NOTE | 2019-03-03 18:33 | NUR ---
MED REC UPDATED VIA LIST FROM HOME. MADE AWARE.
--- NOTE | 2019-03-03 19:05 | NUR ---
PT REQUESTIONG BREATHING TX. RT NOTIFIED.
[2019-03-03 20:00] VITALS: BP 126/61
--- NOTE | 2019-03-03 23:47 | NUR ---
PATIENT REFUSED BIPAP.
[2019-03-04] VITALS (9 sets, daily range): BP systolic 100–149; BP diastolic 56–87
--- NOTE | 2019-03-04 01:40 | NUR ---
PATIENT RESTING IN BED. VERY SOB AND WHEEZY. PULSE OX 93% ON 4L. CALLED RESPIRATORY FOR PRN BREATHING TREATMENT. WILL CONTINUE TO MONITOR.
[2019-03-04 06:32] LABS: HEMATOCRIT 33.5 % (37.0-47.0); HEMOGLOBIN 11.2 g/dl (12.0-16.0); MEAN CELL VOLUME 90.1 fl (81.0-99.0); MEAN CORPUSCULAR HGB 30.1 pg (27.0-31.0); MEAN CORPUSCULAR HGB CONC 33.4 g/dl (33.0-37.0); MEAN PLATELET VOLUME 9.7 fl (9.6-12.3); RED BLOOD COUNT 3.72 10*6/uL (4.10-5.10); RED CELL DISTRI WIDTH 13.1 % (0-14.5); WHITE BLOOD COUNT 14.4 10*3/uL (4.8-10.8)
[2019-03-04 06:33] LABS: PLATELET COUNT AUTOMATED 517 10*3/uL (130-400)
[2019-03-04 06:49] LABS: ATYPICAL LYMPHS 1 % (0-0); BURR CELLS FEW; PLASMA CELL 2 % (0-0); PLATELET SUFFICIENCY HIGH (NORMAL); TOTAL CELLS COUNTED 100 #CELLS
[2019-03-04 06:50] LABS: POLYCHROMASIA SLIGHT
[2019-03-04 06:52] LABS: ALBUMIN 2.4 gm/dl (3.1-4.5); ALKALINE PHOSPHATASE 78 U/L (45-117); BUN 27 mg/dl (7-24); CHLORIDE 108 mmol/L (98-107); CREATININE 1.04 mg/dL (0.55-1.02); POTASSIUM 4.4 mmol/L (3.5-5.1); SGOT/AST 38 IU/L (3-35); SGPT/ALT 41 U/L (12-78); SODIUM 139 mmol/L (136-145); TOTAL PROTEIN 7.5 gm/dL (6.4-8.2)
--- NOTE | 2019-03-04 10:15 | NUR ---
PT BACK ON FLOOR FROM SURGERY. PT IS PLEASANT AND COOPERATIVE. SPEECH IS APPROPRIATE. FAMILY AT BED SIDE. BREATH IS EASY AND REGULAR. NO S/S OF DISTRESS OR PAIN. 4L NC ON. BED IN LOWEST LOCKED POSITION AND CALL LIGHT WITHIN REACH.
[2019-03-04 11:43] LABS: BF LYMPHOCYTES 5 %; BF MACROPHAGES 9 %; BF MONOCYTES 2 %; BF NEUTROPHILS 84 %
--- NOTE | 2019-03-04 14:50 | NUR ---
Shake Packer in to talk to patient. Patient states lives at HOME with . There are FEW steps in the home. Physician: LEVAR QUEZADA Pharmacy: [facility] [place] [facility] services: NONE Patient's level of ADLs: MINIMAL ASSIST Patient has working utilities: YES DME: BIPAP Follow-up physician's appointment after d/c: WILL BE MADE BY HOSPITALIST NURSE DIRECTOR ON DISCHAARGE Does patient want to access PORTAL?: NO Discharge plan PT LIVES AT HOME WITH HER AND IS INDEPENDENT IN CARE. DENIES ANY NEEDS ON DISCHARGE. WILL CONTINUE TO FOLLOW. WILL HAVE A RIDE HOME DISCHARGE.. YEN GLYNN
--- NOTE | 2019-03-04 19:00 | NUR ---
PT AWAKE IN BED DURING BEDSIDE SHIFT REPORT. NO C/O VOICED AT PRESENT TIME. CALL LIGHT IN REACH. PT REMINDED OF NEED FOR STOOL SAMPLE.
--- NOTE | 2019-03-04 20:37 | NUR ---
DR. 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 DR. TAVARES PUT ORDER IN.
--- NOTE | 2019-03-04 21:11 | NUR ---
PT MEDICATED W/TESSALON ALEXA FOR PERSISTANT COUGH.
--- NOTE | 2019-03-04 22:00 | NUR ---
PT STATES THAT TESSALON ALEXA WAS EFFECTIVE FOR RELIEF OF COUGH. BIPAP ON AT THIS TIME.
[2019-03-05] VITALS: BP 138/73
--- NOTE | 2019-03-05 04:43 | NUR ---
24 HR chart check completed.
--- NOTE | 2019-03-05 04:50 | NUR ---
PT REMOVED BIPAP MASK AT THIS TIME. PT CONFUSED TO TIME/PLACE. PT KEEPS REPEATING, "I'M SORRY I MISSED THE [facility]PUBLICAN." SAT 96% ON 3LNC. WILL CONTINUE TO MONITOR.
[2019-03-05 07:18] LABS: HEMATOCRIT 34.7 % (37.0-47.0); HEMOGLOBIN 11.3 g/dl (12.0-16.0); MEAN CELL VOLUME 91.3 fl (81.0-99.0); MEAN CORPUSCULAR HGB 29.7 pg (27.0-31.0); MEAN CORPUSCULAR HGB CONC 32.6 g/dl (33.0-37.0); MEAN PLATELET VOLUME 9.8 fl (9.6-12.3); PLATELET COUNT AUTOMATED 438 10*3/uL (130-400); RED CELL DISTRI WIDTH 13.2 % (0-14.5); WHITE BLOOD COUNT 16.3 10*3/uL (4.8-10.8)
[2019-03-05 07:52] LABS: ALBUMIN 2.4 gm/dl (3.1-4.5); ALKALINE PHOSPHATASE 76 U/L (45-117); BUN 28 mg/dl (7-24); CHLORIDE 108 mmol/L (98-107); CREATININE 0.97 mg/dL (0.55-1.02); POTASSIUM 4.8 mmol/L (3.5-5.1); SGOT/AST 53 IU/L (3-35); SGPT/ALT 47 U/L (12-78); SODIUM 137 mmol/L (136-145); TOTAL PROTEIN 7.6 gm/dL (6.4-8.2)
[2019-03-05 07:55] LABS: ATYPICAL LYMPHS 1 % (0-0); TOTAL CELLS COUNTED 100 #CELLS
[2019-03-05 07:56] LABS: PLATELET SUFFICIENCY HIGH (NORMAL); ROULEAUX MODERATE
[2019-03-05 08:00] VITALS: BP 134/51
[2019-03-05 08:01] LABS: SPHEROCYTES FEW
[2019-03-05 08:02] LABS: BURR CELLS MODERATE
--- NOTE | 2019-03-05 09:44 | NUR ---
SPEECH PATHOLOGY Nursing screen completed. There are no reports of acute difficulty swallowing or communicating therefore speech pathology services are not warranted at this time. This dept. will be available should future needs arise. LIU BERRY [employer]-LINUX SECURITY ADMINISTRATOR
--- NOTE | 2019-03-05 10:46 | NUR ---
PT SITTING UP IN BED AWAKE AND ALERT. 4L NC INTACT AND NO SOB NOTED AT REST. NO S/S OF DISTRESS OR PAIN. NO COMPLAINTS AT THIS TIME. PT IS PLEASANT AND COOPERATIVE AND SPEECH IS APPROPRIATE. BED IS IN LOWEST LOCKED POSITION AND CALL LIGHT IT WITHIN REACH. WILL CONTINUE TO MONITOR.
[2019-03-05 12:00] VITALS: BP 131/57
[2019-03-05 13:04] LABS: ACID FAST SPEC PROCESSING Concentration (.)
--- NOTE | 2019-03-05 13:22 | NUR ---
PT CONTINUES TO STATE SHE WILL RETURN HOME ON DISCAHRGE AND WILL HAVE NO NEEDS. WILL CONTINUE TO FOLLOW.
[2019-03-05 16:00] VITALS: BP 144/88
--- NOTE | 2019-03-05 19:00 | NUR ---
PT AWAKE IN BED DURING BEDSIDE SHIFT REPORT. NO C/O VOICED. CALL LIGHT IN REACH.
[2019-03-05 20:00] VITALS: BP 155/75
--- NOTE | 2019-03-05 22:09 | NUR ---
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
[2019-03-06 01:00] VITALS: BP 150/90
[2019-03-06 08:00] VITALS: BP 155/83
[2019-03-06] MEDS ORDERED: LEVAQUIN750 M1 PO (10:43)
[2019-03-06] MEDS ORDERED: PREDNISONE10 MG PO (10:43)
--- NOTE | 2019-03-06 11:15 | NUR ---
PT CONTINUES TO DENY NEEDS AT HOME. STATES SHE IS BEING DISCHARGED TODAY. WILL CONTINUE TO FOLLOW.
[2019-03-06 12:00] VITALS: BP 154/86
--- NOTE | 2019-03-06 12:20 | NUR ---
11:50 AM AMBULATORY PULSE OX STUDY COMPLETED. PT ACCESSED RESTING SPO2 ON RA :90% AMBULATING ON RA SPO2 88-89% AMBULATING ON 1 L NC: SPO2 90-92%
--- NOTE | 2019-03-06 15:51 | NUR ---
[facility] Discharge instructions reviewed with patient/family. Patient receptive and verbalizes understanding. Follow-up care arranged. Written instructions given to patient/family. [place]
[2019-04-17 10:06] LABS: ACID FAST CULTURE Negative (.)
== END 2019-03-06 15:51 | disposition home or self-care (01) | DRG 871 ==
LOC: ED 18:32 → EDHOLD 20:33 → 5E 20:33
PROVIDERS: Internal Medicine; Internal Medicine Critical Care Medicine; Nurse Practitioner Family; Student in an Organized Health Care Education/Training Program; ADMIT Internal Medicine
PROC: 5A09357 Assistance with Respiratory Ventilation, Less than 24 Consecutive Hours, Continuous Positive Airway Pressure (ICD-10-PCS; principal; 2019-03-01)
PROC: 0BD68ZX Extraction of Right Lower Lobe Bronchus, Via Natural or Artificial Opening Endoscopic, Diagnostic (ICD-10-PCS; 2019-03-04)
PROC: 0BD48ZX Extraction of Right Upper Lobe Bronchus, Via Natural or Artificial Opening Endoscopic, Diagnostic (ICD-10-PCS; 2019-03-04)
PROC: 0BD88ZX Extraction of Left Upper Lobe Bronchus, Via Natural or Artificial Opening Endoscopic, Diagnostic (ICD-10-PCS; 2019-03-04)
PROC: 0B9C8ZX Drainage of Right Upper Lung Lobe, Via Natural or Artificial Opening Endoscopic, Diagnostic (ICD-10-PCS; 2019-03-04)
PROC: 0BD98ZX Extraction of Lingula Bronchus, Via Natural or Artificial Opening Endoscopic, Diagnostic (ICD-10-PCS; 2019-03-04)
PROC: 0BD58ZX Extraction of Right Middle Lobe Bronchus, Via Natural or Artificial Opening Endoscopic, Diagnostic (ICD-10-PCS; 2019-03-04)
PROC: 0BDB8ZX Extraction of Left Lower Lobe Bronchus, Via Natural or Artificial Opening Endoscopic, Diagnostic (ICD-10-PCS; 2019-03-04)
PROC: 5A09357 Assistance with Respiratory Ventilation, Less than 24 Consecutive Hours, Continuous Positive Airway Pressure (ICD-10-PCS; 2019-03-06)
DX: A41.9 Sepsis, unspecified organism (principal); J96.01 Acute respiratory failure with hypoxia; N17.0 Acute kidney failure with tubular necrosis; E43 Unspecified severe protein-calorie malnutrition; J13 Pneumonia due to Streptococcus pneumoniae; E87.1 Hypo-osmolality and hyponatremia; J45.901 Unspecified asthma with (acute) exacerbation; F31.60 Bipolar disorder, current episode mixed, unspecified; Z68.37 Body mass index [BMI] 37.0-37.9, adult; R65.20 Severe sepsis without septic shock; D64.9 Anemia, unspecified; E83.39 Other disorders of phosphorus metabolism; E87.6 Hypokalemia; E11.65 Type 2 diabetes mellitus with hyperglycemia; R74.0 Nonspecific elevation of levels of transaminase and lactic acid dehydrogenase [LDH]; R91.8 Other nonspecific abnormal finding of lung field; E66.01 Morbid (severe) obesity due to excess calories; I70.90 Unspecified atherosclerosis; I10 Essential (primary) hypertension; F41.9 Anxiety disorder, unspecified; E03.9 Hypothyroidism, unspecified; E78.5 Hyperlipidemia, unspecified; G24.01 Drug induced subacute dyskinesia; Z88.8 Allergy status to other drugs, medicaments and biological substances; Z88.2 Allergy status to sulfonamides; Z91.048 Other nonmedicinal substance allergy status; Z90.49 Acquired absence of other specified parts of digestive tract; Z98.891 History of uterine scar from previous surgery; Z82.49 Family history of ischemic heart disease and other diseases of the circulatory system; Z86.73 Personal history of transient ischemic attack (TIA), and cerebral infarction without residual deficits; Z79.82 Long term (current) use of aspirin; Z79.899 Other long term (current) drug therapy; Z79.890 Hormone replacement therapy; Z80.1 Family history of malignant neoplasm of trachea, bronchus and lung; Z87.01 Personal history of pneumonia (recurrent)

== ENCOUNTER → 2019-05-28 | Outpatient (CLI) | payer MEDICARE, OTHER ==
[~2019-05-28] MED LIST changes: +LEVAQUIN750 M1 PO; +PREDNISONE10 MG PO; +SEROQUEL25 MG PO; +TRESIBA FL200 UNIT/1 SQ; +TRULICITY1.5 MG/0.5 SC; +VRAYLAR3 MG PO
[2019-05-28 10:00] LABS: ALBUMIN 3.5 gm/dl (3.1-4.5); ALKALINE PHOSPHATASE 76 U/L (45-117); BILIRUBIN, DIRECT 0.2 mg/dL (0.0-0.2); BUN 18 mg/dl (7-24); CHLORIDE 104 mmol/L (98-107); CREATININE 0.76 mg/dL (0.55-1.02); SGOT/AST 45 IU/L (3-35); SGPT/ALT 54 U/L (12-78); SODIUM 140 mmol/L (136-145); TOTAL PROTEIN 7.4 gm/dL (6.4-8.2)
[2019-05-29 11:09] LABS: HEPATITIS B SURFACE AG Negative (Negative); HEPATITIS C VIRUS ANTIBODY <0.1 s/co (0.0-0.9)
== END | disposition home or self-care (01) ==
LOC: LAB 09:03
PROVIDERS: Nurse Practitioner Family
DX: I10 Essential (primary) hypertension (principal); J18.1 Lobar pneumonia, unspecified organism; F31.60 Bipolar disorder, current episode mixed, unspecified; N76.1 Subacute and chronic vaginitis; R94.5 Abnormal results of liver function studies; L65.9 Nonscarring hair loss, unspecified

== ENCOUNTER → 2019-06-05 | Outpatient (CLI) | payer MEDICARE, OTHER ==
[2019-06-05 10:27] LABS: ALBUMIN 3.9 gm/dl (3.1-4.5); BILIRUBIN, DIRECT 0.2 mg/dL (0.0-0.2); TOTAL PROTEIN 7.7 gm/dL (6.4-8.2)
== END | disposition home or self-care (01) ==
LOC: LAB 09:10
PROVIDERS: Nurse Practitioner Family
DX: R31.29 Other microscopic hematuria (principal); R94.5 Abnormal results of liver function studies; R30.0 Dysuria; Z90.710 Acquired absence of both cervix and uterus

== ENCOUNTER → 2019-06-25 | Outpatient (CLI) | payer MEDICARE, OTHER | END | disposition home or self-care (01) | LOC: RAD 09:04 | DX: K76.0 Fatty (change of) liver, not elsewhere classified (principal) ==

== ENCOUNTER 2019-11-25 08:30 | Inpatient (IN) | payer MEDICARE, OTHER ==
[~2019-11-25] VITALS: Ht 172.7 cm; Wt 114.1 kg
[2019-11-25 08:41] VITALS: BP 148/68
[2019-11-25 09:09] LABS: BASO # 0.1 10*3/uL (0.0-0.1); BASO % 0.5 % (0.0-1.0); EOS # 0.4 10*3/uL (0.0-0.4); EOS % 2.8 % (1.0-4.0); HEMATOCRIT 44.5 % (37.0-47.0); HEMOGLOBIN 14.8 g/dl (12.0-16.0); LYMPH # 4.2 10*3/uL (1.3-4.4); LYMPH % 28.4 % (27.0-41.0); MEAN CELL VOLUME 90.1 fl (81.0-99.0); MEAN CORPUSCULAR HGB CONC 33.3 g/dl (33.0-37.0); MEAN PLATELET VOLUME 9.7 fl (9.6-12.3); MONO # 1.4 10*3/uL (0.1-1.0); MONO % 9.6 % (3.0-9.0); NEUT # 8.5 10*3/uL (2.3-7.9); NEUT % 58.4 % (47.0-73.0); PLATELET COUNT AUTOMATED 327 10*3/uL (130-400); RED BLOOD COUNT 4.94 10*6/uL (4.10-5.10); RED CELL DISTRI WIDTH 13.1 % (0-14.5); WHITE BLOOD COUNT 14.6 10*3/uL (4.8-10.8)
[2019-11-25 09:15] LABS: ACT PARTIAL THROMBO TIME 25.3 SECONDS (20.0-32.1); INTERNATIONAL NORM RATIO 0.9 (2.0-3.5)
[2019-11-25 09:20] LABS: ALBUMIN 3.9 gm/dl (3.1-4.5); ALKALINE PHOSPHATASE 81 U/L (45-117); BUN 15 mg/dl (7-24); CHLORIDE 102 mmol/L (98-107); LIPASE 147 U/L (73-393); POTASSIUM 3.7 mmol/L (3.5-5.1); SGOT/AST 33 IU/L (3-35); SGPT/ALT 39 U/L (12-78); SODIUM 136 mmol/L (136-145); TOTAL PROTEIN 8.5 gm/dL (6.4-8.2)
[2019-11-25 09:24] LABS: BACTERIA 1+; BILIRUBIN NEGATIVE (NEGATIVE); BLOOD NEGATIVE (NEGATIVE); CLARITY SL CLOUDY (CLEAR); COLOR STRAW (YELLOW); GLUCOSE NEGATIVE (NEGATIVE); KETONE NEGATIVE (NEGATIVE); NITRITE NEGATIVE (NEGATIVE); SPECIFIC GRAVITY 1.015 (1.005-1.030); UROBILINOGEN 0.2 E.U./dl (0.2-1.0)
[2019-11-25 09:25] LABS: LEUKO ESTERASE 1+ (NEGATIVE)
[2019-11-25 10:07] VITALS: BP 121/47
[2019-11-25] MEDS ORDERED: LIPITOR80 MG PO (10:33)
[2019-11-25] MEDS ORDERED: EXFORGE HCT 101 EACH PO (10:34)
[2019-11-25] MEDS ORDERED: BIOTIN10000 MC1 PO (10:40)
[2019-11-25] MEDS ORDERED: VITAMIN E200 UNI1 PO (10:40)
[2019-11-25] MEDS ORDERED: OZEMPIC1 MG/0.75 SQ (10:41)
[2019-11-25] MEDS ORDERED: HUMALOG100 UNIT/2 SQ (10:43)
[2019-11-25 16:00] VITALS: BP 148/64
[2019-11-25 20:00] VITALS: BP 151/67
[2019-11-26] VITALS: BP 128/64
[2019-11-26 06:25] LABS: BASO # 0.1 10*3/uL (0.0-0.1); BASO % 0.5 % (0.0-1.0); EOS # 0.3 10*3/uL (0.0-0.4); EOS % 2.2 % (1.0-4.0); HEMOGLOBIN 11.8 g/dl (12.0-16.0); LYMPH # 3.5 10*3/uL (1.3-4.4); LYMPH % 27.8 % (27.0-41.0); MEAN CELL VOLUME 89.1 fl (81.0-99.0); MEAN CORPUSCULAR HGB 29.2 pg (27.0-31.0); MEAN CORPUSCULAR HGB CONC 32.8 g/dl (33.0-37.0); MEAN PLATELET VOLUME 9.9 fl (9.6-12.3); MONO # 1.2 10*3/uL (0.1-1.0); MONO % 9.3 % (3.0-9.0); NEUT # 7.5 10*3/uL (2.3-7.9); NEUT % 59.9 % (47.0-73.0); PLATELET COUNT AUTOMATED 256 10*3/uL (130-400); RED BLOOD COUNT 4.04 10*6/uL (4.10-5.10); RED CELL DISTRI WIDTH 13.2 % (0-14.5); WHITE BLOOD COUNT 12.6 10*3/uL (4.8-10.8)
[2019-11-26 06:52] LABS: BUN 8 mg/dl (7-24); CHLORIDE 108 mmol/L (98-107); CHOLESTEROL 88 mg/dL (<200); CREATININE 0.76 mg/dL (0.55-1.02); PHOSPHOROUS 2.9 mg/dL (2.5-4.9); POTASSIUM 3.5 mmol/L (3.5-5.1); SGOT/AST 16 IU/L (3-35); SGPT/ALT 25 U/L (12-78); SODIUM 141 mmol/L (136-145); TOTAL PROTEIN 6.4 gm/dL (6.4-8.2); TRIGLYCERIDES 88 mg/dl (<150); VLDL CHOLESTEROL 18 mg/dL (6-40)
[2019-11-26 06:59] LABS: ALKALINE PHOSPHATASE 57 U/L (45-117); HDL CHOLESTEROL 30 mg/dl (40-60); LDL CHOLESTEROL 40 mg/dL (9-159)
[2019-11-26 08:00] VITALS: BP 146/50
[2019-11-26 12:00] VITALS: BP 129/67
[2019-11-26 16:00] VITALS: BP 137/47
[2019-11-26 20:00] VITALS: BP 149/59
[2019-11-27] VITALS: BP 145/46
[2019-11-27 07:02] LABS: BASO # 0.1 10*3/uL (0.0-0.1); BASO % 0.5 % (0.0-1.0); EOS # 0.4 10*3/uL (0.0-0.4); EOS % 4.2 % (1.0-4.0); HEMATOCRIT 35.9 % (37.0-47.0); HEMOGLOBIN 11.8 g/dl (12.0-16.0); LYMPH # 3.8 10*3/uL (1.3-4.4); LYMPH % 38.1 % (27.0-41.0); MEAN CELL VOLUME 89.3 fl (81.0-99.0); MEAN CORPUSCULAR HGB 29.4 pg (27.0-31.0); MEAN CORPUSCULAR HGB CONC 32.9 g/dl (33.0-37.0); MEAN PLATELET VOLUME 9.7 fl (9.6-12.3); MONO % 10.4 % (3.0-9.0); NEUT # 4.6 10*3/uL (2.3-7.9); NEUT % 46.5 % (47.0-73.0); PLATELET COUNT AUTOMATED 258 10*3/uL (130-400); RED BLOOD COUNT 4.02 10*6/uL (4.10-5.10); RED CELL DISTRI WIDTH 13.1 % (0-14.5); WHITE BLOOD COUNT 9.9 10*3/uL (4.8-10.8)
[2019-11-27 07:40] LABS: BUN 7 mg/dl (7-24); CHLORIDE 111 mmol/L (98-107); POTASSIUM 3.6 mmol/L (3.5-5.1); SODIUM 143 mmol/L (136-145)
[2019-11-27 07:43] LABS: CREATININE 0.71 mg/dL (0.55-1.02)
[2019-11-27 08:00] VITALS: BP 148/59
[2019-11-27 12:00] VITALS: BP 149/78
[2019-11-27] MEDS ORDERED: CIPRO500 MG PO (12:18)
[2019-11-27] MEDS ORDERED: FLAGYL500 MG PO (12:18)
== END 2019-11-27 13:35 | disposition home or self-care (01) | DRG 871 ==
LOC: ED 08:30 → EDHOLD 09:45 → 5E 09:45
PROVIDERS: Emergency Medicine; Internal Medicine; Student in an Organized Health Care Education/Training Program; ADMIT Family Medicine
DX: A41.9 Sepsis, unspecified organism (principal); N17.0 Acute kidney failure with tubular necrosis; E87.2 Acidosis; K57.32 Diverticulitis of large intestine without perforation or abscess without bleeding; F31.81 Bipolar II disorder; R82.71 Bacteriuria; E11.65 Type 2 diabetes mellitus with hyperglycemia; I10 Essential (primary) hypertension; F41.9 Anxiety disorder, unspecified; E11.69 Type 2 diabetes mellitus with other specified complication; E66.9 Obesity, unspecified; E03.9 Hypothyroidism, unspecified; E78.5 Hyperlipidemia, unspecified; Z68.38 Body mass index [BMI] 38.0-38.9, adult; Z79.4 Long term (current) use of insulin; Z86.73 Personal history of transient ischemic attack (TIA), and cerebral infarction without residual deficits; Z88.2 Allergy status to sulfonamides; Z88.6 Allergy status to analgesic agent; Z88.8 Allergy status to other drugs, medicaments and biological substances; Z79.899 Other long term (current) drug therapy; Z90.710 Acquired absence of both cervix and uterus; Z82.49 Family history of ischemic heart disease and other diseases of the circulatory system; Z80.1 Family history of malignant neoplasm of trachea, bronchus and lung

== ENCOUNTER 2020-05-18 09:25 | Emergency (ER) | payer MEDICARE, OTHER ==
[~2020-05-18] VITALS: Ht 175.2 cm; Wt 108.9 kg
[~2020-05-18 09:25] MED LIST changes: +BIOTIN10000 MC1 PO; +CIPRO500 MG PO; +EXFORGE HCT 101 EACH PO; +FLAGYL500 MG PO; +HUMALOG100 UNIT/2 SQ; +OZEMPIC1 MG/0.75 SQ; +VITAMIN E200 UNI1 PO
[2020-05-18 10:13] LABS: BASO # 0.1 10*3/uL (0.0-0.1); BASO % 0.7 % (0.0-1.0); EOS # 0.2 10*3/uL (0.0-0.4); EOS % 1.6 % (1.0-4.0); LYMPH # 3.2 10*3/uL (1.3-4.4); LYMPH % 34.9 % (27.0-41.0); MEAN CELL VOLUME 87.8 fl (81.0-99.0); MEAN CORPUSCULAR HGB 29.2 pg (27.0-31.0); MEAN CORPUSCULAR HGB CONC 33.3 g/dl (33.0-37.0); MEAN PLATELET VOLUME 9.1 fl (9.6-12.3); MONO # 0.7 10*3/uL (0.1-1.0); MONO % 7.9 % (3.0-9.0); NEUT # 5.1 10*3/uL (2.3-7.9); NEUT % 54.7 % (47.0-73.0); PLATELET COUNT AUTOMATED 280 10*3/uL (130-400); RED CELL DISTRI WIDTH 13.2 % (0-14.5); WHITE BLOOD COUNT 9.2 10*3/uL (4.8-10.8)
[2020-05-18 10:26] LABS: BUN 13 mg/dl (7-24); CHLORIDE 104 mmol/L (98-107); CREATININE 0.96 mg/dL (0.55-1.02); POTASSIUM 4.4 mmol/L (3.5-5.1); SODIUM 136 mmol/L (136-145)
[2020-05-18 10:35] LABS: ACT PARTIAL THROMBO TIME 25.4 SECONDS (20.0-32.1)
== END 2020-05-18 12:15 | disposition home or self-care (01) ==
LOC: ED 09:25
PROVIDERS: Emergency Medicine
DX: H53.2 Diplopia (principal); H49.22 Sixth [abducent] nerve palsy, left eye; R79.1 Abnormal coagulation profile; I10 Essential (primary) hypertension; E11.9 Type 2 diabetes mellitus without complications

== ENCOUNTER → 2020-05-29 | Outpatient (CLI) | payer MEDICARE, OTHER | END | disposition home or self-care (01) | LOC: MRI 08:44 | PROVIDERS: ATTEND Nurse Practitioner Family | DX: I67.82 Cerebral ischemia (principal); I10 Essential (primary) hypertension; E11.65 Type 2 diabetes mellitus with hyperglycemia; H49.22 Sixth [abducent] nerve palsy, left eye ==

== ENCOUNTER → 2020-09-30 | Outpatient (CLI) | payer MEDICARE, OTHER ==
[2020-09-30 10:21] LABS: CREATININE 0.97 mg/dL (0.55-1.02)
== END | disposition home or self-care (01) ==
LOC: LAB 09:38
PROVIDERS: ATTEND Nurse Practitioner
DX: Z01.818 Encounter for other preprocedural examination (principal); D17.30 Benign lipomatous neoplasm of skin and subcutaneous tissue of unspecified sites

== ENCOUNTER → 2020-10-02 | Outpatient (CLI) | payer MEDICARE, OTHER | END | disposition home or self-care (01) | LOC: CT 00:12 | PROVIDERS: ATTEND Nurse Practitioner | DX: D17.30 Benign lipomatous neoplasm of skin and subcutaneous tissue of unspecified sites (principal) ==

== ENCOUNTER 2021-03-02 12:58 | Emergency (ER) | payer MEDICARE, OTHER ==
[~2021-03-02] VITALS: Wt 111.1 kg
[2021-03-02 13:49] LABS: BASO # 0.1 10*3/uL (0.0-0.1); BASO % 0.6 % (0.0-1.0); EOS # 0.2 10*3/uL (0.0-0.4); EOS % 1.7 % (1.0-4.0); HEMATOCRIT 40.7 % (37.0-47.0); LYMPH # 3.3 10*3/uL (1.3-4.4); LYMPH % 36.2 % (27.0-41.0); MEAN CELL VOLUME 85.5 fl (81.0-99.0); MEAN CORPUSCULAR HGB CONC 33.9 g/dl (33.0-37.0); MEAN PLATELET VOLUME 9.2 fl (9.6-12.3); MONO # 0.9 10*3/uL (0.1-1.0); MONO % 10.1 % (3.0-9.0); NEUT # 4.6 10*3/uL (2.3-7.9); NEUT % 51.2 % (47.0-73.0); PLATELET COUNT AUTOMATED 283 10*3/uL (130-400); RED BLOOD COUNT 4.76 10*6/uL (4.10-5.10)
[2021-03-02 13:50] LABS: BILIRUBIN Negative (Negative); BLOOD Negative (Negative); CLARITY Clear (Clear); COLOR Yellow (Yellow); GLUCOSE Trace (Negative); KETONE Negative (Negative); LEUKO ESTERASE 1+ (Negative); NITRITE Negative (Negative)
[2021-03-02 14:05] LABS: ALBUMIN 3.5 gm/dl (3.1-4.5); ALKALINE PHOSPHATASE 67 U/L (45-117); BUN 12 mg/dl (7-24); CHLORIDE 103 mmol/L (98-107); CREATININE 0.86 mg/dL (0.55-1.02); LIPASE 188 U/L (73-393); POTASSIUM 4.1 mmol/L (3.5-5.1); SGOT/AST 29 IU/L (3-35); SGPT/ALT 47 U/L (12-78); SODIUM 134 mmol/L (136-145); TOTAL PROTEIN 7.9 gm/dL (6.4-8.2)
[2021-03-02 14:16] LABS: EPITHELIAL CELLS 21-30; HYALINE CAST 0-2; MUCOUS 1+
[2021-03-02] MEDS ORDERED: MACROBID100 M1 PO (15:10)
== END 2021-03-02 15:30 | disposition home or self-care (01) ==
LOC: ED 12:58
PROVIDERS: Physician Assistant
DX: N39.0 Urinary tract infection, site not specified (principal); R19.7 Diarrhea, unspecified; E11.9 Type 2 diabetes mellitus without complications; Z88.2 Allergy status to sulfonamides; Z88.8 Allergy status to other drugs, medicaments and biological substances; Z91.041 Radiographic dye allergy status; Z79.82 Long term (current) use of aspirin; Z79.2 Long term (current) use of antibiotics; Z79.899 Other long term (current) drug therapy; Z79.4 Long term (current) use of insulin; Z98.890 Other specified postprocedural states; Z90.711 Acquired absence of uterus with remaining cervical stump

== ENCOUNTER → 2021-07-01 | Outpatient (CLI) | payer MEDICARE, OTHER | END | disposition home or self-care (01) | LOC: RAD 17:33 | PROVIDERS: ATTEND Family Medicine | DX: Z11.59 Encounter for screening for other viral diseases (principal); R05.9 Cough, unspecified ==

== ENCOUNTER → 2021-11-02 | Outpatient (CLI) | payer MEDICARE, OTHER ==
[2021-11-02 16:28] LABS: FREE T4 1.07 ng/dl (0.76-1.46); THYROID STIM HORMONE (HS) 1.35 uIU/ml (0.358-4.75)
[2021-11-03 16:08] LABS: t-TRANSGLUTAMINASE (tTG) IGA <2 U/mL (0-3); t-TRANSGLUTAMINASE (tTG) IgG <2 U/mL (0-5)
== END | disposition home or self-care (01) ==
LOC: LAB 15:37
PROVIDERS: ATTEND Physician Assistant
DX: N20.0 Calculus of kidney (principal); R91.8 Other nonspecific abnormal finding of lung field; I10 Essential (primary) hypertension

== ENCOUNTER → 2021-12-22 | Outpatient (CLI) | payer MEDICARE, OTHER ==
[2021-12-22 10:42] LABS: BASO # 0.1 10*3/uL (0.0-0.1); BASO % 0.6 % (0.0-1.0); EOS # 0.1 10*3/uL (0.0-0.4); EOS % 1.5 % (1.0-4.0); HEMATOCRIT 40.3 % (37.0-47.0); LYMPH # 3.3 10*3/uL (1.3-4.4); LYMPH % 36.7 % (27.0-41.0); MEAN CELL VOLUME 86.9 fl (81.0-99.0); MEAN CORPUSCULAR HGB 29.3 pg (27.0-31.0); MEAN CORPUSCULAR HGB CONC 33.7 g/dl (33.0-37.0); MEAN PLATELET VOLUME 9.5 fl (9.6-12.3); MONO # 0.7 10*3/uL (0.1-1.0); MONO % 8.3 % (3.0-9.0); NEUT # 4.7 10*3/uL (2.3-7.9); NEUT % 52.4 % (47.0-73.0); PLATELET COUNT AUTOMATED 270 10*3/uL (130-400); RED BLOOD COUNT 4.64 10*6/uL (4.10-5.10); RED CELL DISTRI WIDTH 13.2 % (0-14.5); WHITE BLOOD COUNT 8.9 10*3/uL (4.8-10.8)
[2021-12-22 11:10] LABS: ALKALINE PHOSPHATASE 57 U/L (45-117); BUN 16 mg/dl (7-24); CHLORIDE 105 mmol/L (98-107); CREATININE 0.87 mg/dL (0.55-1.02); POTASSIUM 4.2 mmol/L (3.5-5.1); SGOT/AST 27 IU/L (3-35); SGPT/ALT 43 U/L (12-78); SODIUM 138 mmol/L (136-145); TOTAL PROTEIN 7.7 gm/dL (6.4-8.2)
== END | disposition home or self-care (01) ==
LOC: LAB 09:58
PROVIDERS: ATTEND Physician Assistant
DX: K74.60 Unspecified cirrhosis of liver (principal)

== ENCOUNTER → 2022-05-03 | Outpatient (CLI) | payer MEDICARE, OTHER ==
[2022-05-03 12:16] LABS: BASO # 0.1 10*3/uL (0.0-0.1); BASO % 0.8 % (0.0-1.0); EOS # 0.4 10*3/uL (0.0-0.4); EOS % 4.9 % (1.0-4.0); HEMATOCRIT 41.1 % (37.0-47.0); LYMPH # 3.3 10*3/uL (1.3-4.4); LYMPH % 37.1 % (27.0-41.0); MEAN CELL VOLUME 86.7 fl (81.0-99.0); MEAN CORPUSCULAR HGB 29.5 pg (27.0-31.0); MEAN CORPUSCULAR HGB CONC 34.1 g/dl (33.0-37.0); MEAN PLATELET VOLUME 8.9 fl (9.6-12.3); MONO # 0.9 10*3/uL (0.1-1.0); MONO % 10.3 % (3.0-9.0); NEUT # 4.2 10*3/uL (2.3-7.9); NEUT % 46.8 % (47.0-73.0); PLATELET COUNT AUTOMATED 274 10*3/uL (130-400); RED BLOOD COUNT 4.74 10*6/uL (4.10-5.10); RED CELL DISTRI WIDTH 13.2 % (0-14.5); WHITE BLOOD COUNT 8.9 10*3/uL (4.8-10.8)
[2022-05-03 12:50] LABS: ALKALINE PHOSPHATASE 60 U/L (45-117); BUN 13 mg/dl (7-24); CHLORIDE 105 mmol/L (98-107); CHOLESTEROL 108 mg/dL (<200); CREATININE 0.95 mg/dL (0.55-1.02); LDL CHOLESTEROL 48 mg/dL (9-159); POTASSIUM 4.4 mmol/L (3.5-5.1); SGOT/AST 42 IU/L (3-35); SGPT/ALT 48 U/L (12-78); SODIUM 139 mmol/L (136-145); TOTAL PROTEIN 7.9 gm/dL (6.4-8.2); TRIGLYCERIDES 128 mg/dl (<150)
[2022-05-03 12:57] LABS: THYROID STIM HORMONE (HS) 0.274 uIU/ml (0.358-4.75)
== END | disposition home or self-care (01) ==
LOC: LAB 11:59
PROVIDERS: ATTEND Nurse Practitioner Family
DX: I10 Essential (primary) hypertension (principal); E11.9 Type 2 diabetes mellitus without complications; E78.5 Hyperlipidemia, unspecified; E66.9 Obesity, unspecified

== ENCOUNTER → 2022-08-09 | Outpatient (CLI) | payer MEDICARE, OTHER ==
[2022-08-09 12:23] LABS: BASO # 0.1 10*3/uL (0.0-0.1); BASO % 0.9 % (0.0-1.0); EOS # 0.3 10*3/uL (0.0-0.4); EOS % 2.7 % (1.0-4.0); HEMATOCRIT 42.4 % (37.0-47.0); LYMPH # 4.1 10*3/uL (1.3-4.4); LYMPH % 42.2 % (27.0-41.0); MEAN CELL VOLUME 88.9 fl (81.0-99.0); MEAN CORPUSCULAR HGB 29.6 pg (27.0-31.0); MEAN CORPUSCULAR HGB CONC 33.3 g/dl (33.0-37.0); MONO # 0.9 10*3/uL (0.1-1.0); MONO % 8.9 % (3.0-9.0); NEUT # 4.3 10*3/uL (2.3-7.9); NEUT % 44.9 % (47.0-73.0); PLATELET COUNT AUTOMATED 281 10*3/uL (130-400); RED BLOOD COUNT 4.77 10*6/uL (4.10-5.10); RED CELL DISTRI WIDTH 13.4 % (0-14.5); WHITE BLOOD COUNT 9.7 10*3/uL (4.8-10.8)
[2022-08-09 12:44] LABS: ALKALINE PHOSPHATASE 59 U/L (45-117); BUN 12 mg/dl (7-24); CHLORIDE 103 mmol/L (98-107); CHOLESTEROL 117 mg/dL (<200); CREATININE 1.02 mg/dL (0.55-1.02); LDL CHOLESTEROL 50 mg/dL (9-159); POTASSIUM 4.1 mmol/L (3.5-5.1); SGPT/ALT 38 U/L (12-78); SODIUM 137 mmol/L (136-145); TRIGLYCERIDES 145 mg/dl (<150)
[2022-08-10 10:06] LABS: CREATININE,URINE 86.8 mg/dL (Not Estab.)
== END ==
LOC: LAB 01:16
PROVIDERS: ATTEND Nurse Practitioner Family
DX: E78.5 Hyperlipidemia, unspecified (principal); E11.65 Type 2 diabetes mellitus with hyperglycemia; I10 Essential (primary) hypertension; E66.9 Obesity, unspecified; K76.0 Fatty (change of) liver, not elsewhere classified

== ENCOUNTER → 2023-02-17 | Outpatient (CLI) | payer MEDICARE, OTHER | END | disposition home or self-care (01) | LOC: CARD 13:19 | PROVIDERS: ATTEND Nurse Practitioner Family | DX: E11.65 Type 2 diabetes mellitus with hyperglycemia (principal); I10 Essential (primary) hypertension; R01.1 Cardiac murmur, unspecified ==

== ENCOUNTER → 2023-02-23 | Outpatient (CLI) | payer MEDICARE, OTHER ==
[2023-02-23 10:13] LABS: BASO # 0.1 10*3/uL (0.0-0.1); BASO % 0.7 % (0.0-1.0); EOS # 0.2 10*3/uL (0.0-0.4); EOS % 1.8 % (1.0-4.0); HEMATOCRIT 40.1 % (37.0-47.0); LYMPH % 35.5 % (27.0-41.0); MEAN CELL VOLUME 85.7 fl (81.0-99.0); MEAN CORPUSCULAR HGB 29.7 pg (27.0-31.0); MEAN CORPUSCULAR HGB CONC 34.7 g/dl (33.0-37.0); MONO # 0.7 10*3/uL (0.1-1.0); MONO % 8.7 % (3.0-9.0); NEUT # 4.5 10*3/uL (2.3-7.9); NEUT % 52.9 % (47.0-73.0); PLATELET COUNT AUTOMATED 265 10*3/uL (130-400); RED BLOOD COUNT 4.68 10*6/uL (4.10-5.10); RED CELL DISTRI WIDTH 13.5 % (0-14.5); WHITE BLOOD COUNT 8.5 10*3/uL (4.8-10.8)
[2023-02-23 10:39] LABS: ALKALINE PHOSPHATASE 59 U/L (46-116); BUN 7 mg/dl (9-23); CHLORIDE 102 mmol/L (98-107); CHOLESTEROL 113 mg/dL (<200); LDL CHOLESTEROL 46 mg/dL (9-159); POTASSIUM 4.2 mmol/L (3.4-5.1); SGPT/ALT 22 U/L (10-49); THYROID STIM HORMONE (HS) 1.608 uIU/ml (0.550-4.780); TOTAL PROTEIN 7.8 gm/dL (6.0-8.0); TRIGLYCERIDES 177 mg/dl (<150)
== END | disposition home or self-care (01) ==
LOC: LAB 01:33
PROVIDERS: ATTEND Nurse Practitioner Family
DX: I10 Essential (primary) hypertension (principal); E11.65 Type 2 diabetes mellitus with hyperglycemia; E78.5 Hyperlipidemia, unspecified; K76.0 Fatty (change of) liver, not elsewhere classified; R10.9 Unspecified abdominal pain

== ENCOUNTER → 2023-03-01 | Outpatient (CLI) | payer MEDICARE, OTHER | END | disposition home or self-care (01) | LOC: CARD 00:31 | PROVIDERS: ATTEND Nurse Practitioner Family | DX: I35.0 Nonrheumatic aortic (valve) stenosis (principal); R01.1 Cardiac murmur, unspecified; E11.65 Type 2 diabetes mellitus with hyperglycemia; I10 Essential (primary) hypertension ==

== ENCOUNTER 2023-03-14 22:15 | Emergency (ER) | payer MEDICARE, OTHER ==
[~2023-03-14] VITALS: Ht 174.2 cm; Wt 111.1 kg
[2023-03-14 22:52] LABS: BASO % 0.2 % (0.0-1.0); EOS # 0.1 10*3/uL (0.0-0.4); EOS % 0.8 % (1.0-4.0); HEMATOCRIT 35.9 % (37.0-47.0); LYMPH # 2.8 10*3/uL (1.3-4.4); LYMPH % 22.2 % (27.0-41.0); MEAN CELL VOLUME 87.8 fl (81.0-99.0); MEAN CORPUSCULAR HGB 29.8 pg (27.0-31.0); MONO # 0.8 10*3/uL (0.1-1.0); MONO % 6.5 % (3.0-9.0); NEUT # 8.7 10*3/uL (2.3-7.9); NEUT % 69.9 % (47.0-73.0); PLATELET COUNT AUTOMATED 278 10*3/uL (130-400); RED BLOOD COUNT 4.09 10*6/uL (4.10-5.10); RED CELL DISTRI WIDTH 13.7 % (0-14.5); WHITE BLOOD COUNT 12.4 10*3/uL (4.8-10.8)
[2023-03-14 23:10] LABS: POTASSIUM 3.9 mmol/L (3.4-5.1); TOTAL PROTEIN 6.9 gm/dL (6.0-8.0)
[2023-03-14 23:38] LABS: BILIRUBIN 1+ (Negative); BLOOD Negative (Negative); CLARITY Cloudy (Clear); COLOR Dark Yellow (Yellow); GLUCOSE Trace (Negative); KETONE Trace (Negative); LEUKO ESTERASE Trace (Negative); NITRITE Negative (Negative); SPECIFIC GRAVITY 1.025 (1.001-1.030)
[2023-03-14 23:49] LABS: EPITHELIAL CELLS 16-20
[2023-03-14 23:50] LABS: BACTERIA TRACE
== END 2023-03-15 04:50 | disposition short-term general hospital (02) ==
LOC: ED 22:15
PROVIDERS: Emergency Medicine
DX: A41.9 Sepsis, unspecified organism (principal); N17.9 Acute kidney failure, unspecified; R77.8 Other specified abnormalities of plasma proteins; D72.829 Elevated white blood cell count, unspecified; K63.1 Perforation of intestine (nontraumatic); Z88.2 Allergy status to sulfonamides; Z88.8 Allergy status to other drugs, medicaments and biological substances; Z91.041 Radiographic dye allergy status; F41.9 Anxiety disorder, unspecified; F31.9 Bipolar disorder, unspecified; E78.5 Hyperlipidemia, unspecified; E87.6 Hypokalemia; E87.1 Hypo-osmolality and hyponatremia; E03.9 Hypothyroidism, unspecified; D64.9 Anemia, unspecified; Z86.73 Personal history of transient ischemic attack (TIA), and cerebral infarction without residual deficits; E11.65 Type 2 diabetes mellitus with hyperglycemia; Z90.710 Acquired absence of both cervix and uterus; Z98.890 Other specified postprocedural states